=== PATIENT | female | born 1980 | race Hispanic/Latino ===

== ENCOUNTER 2018-12-20 10:08 | Emergency (ER) | payer BC ==
[2018-12-20 11:12] LABS: Absolute Lymphocytes (CBC) 1.9 K/uL (0.7-4.9); Absolute Monocytes 0.6 K/uL (0.1-1.3); Absolute Neutrophil 5.5 K/uL (1.8-8.0); Basophils % 0.5 % (0-1.3); Eosinophils % 0.3 % (0-4.4); Hematocrit 35.9 % (36.0-45.0); Lymphocytes % 23.8 % (15.3-44.8); MPV 8.4 fL (7.6-11.3); Monocytes % 7.7 % (3.3-12.3); RBC Red Blood Cell Count 3.84 M/uL (3.86-4.86)
[2018-12-20] MEDS ORDERED: NA CHLORIDE 0.9% 1,000 ML ONE (11:14)
[2018-12-20 11:18] LABS: Protime INR 1.11
[2018-12-20 11:32] LABS: ALT/SGPT 18 U/L (12-78); AST/SGOT 12 U/L (15-37); Albumin 3.8 g/dL (3.4-5.0); Alkaline Phosphatase 49 U/L (45-117); BUN Blood Urea Nitrogen 8 mg/dL (7-18); Bicarbonate 27 mmol/L (21-32); Bilirubin Direct 0.2 mg/dL (0-0.2); Bilirubin Total 0.6 mg/dL (0.2-1.0); Glucose Level 102 mg/dL (74-106); NT PRO-BNP 76 pg/mL (<125); Potassium 3.7 mmol/L (3.5-5.1); Protein, Total 7.1 g/dL (6.4-8.2); Sodium Level 140 mmol/L (136-145); Troponin (Emerg Dept Use Only) < 0.02 ng/mL (0.0-0.045)
--- NOTE | 2018-12-20 12:13 | RAD REPORT ---
EXAM DESCRIPTION: RAD - Chest Single View - 12/20/2018 12:00 pm CLINICAL HISTORY: Back pain, left-sided breast and chest pain COMPARISON: None. TECHNIQUE: AP portable chest image was obtained 1155 hours . FINDINGS: Lung volumes are low. No peripheral consolidation or mass. Significant failure or volume o verload are doubtful. Heart size is upper normal, accentuated by portable technique and shallow inspi ration. Vasculature not outside of normal range. No measurable pleural effusion and no pneumothorax. No acute bony abnormality seen. No acute aortic findings suspected. IMPRESSION: Exam is limited due to portable technique and shallow inspiration. No definitive evidence for pneumonia, failure or volume overload.
[2018-12-20] MEDS ORDERED: ASPIRIN 81 MG CHEWABLE TABLET ONE (12:31)
[2018-12-20 14:13] LABS: Urine Bacteria >50 /HPF (<20); Urine Culture Reflex Order REFLEXED; Urine Mucus 1+ /HPF (NONE SEEN); Urine RBC <5 /HPF (NONE SEEN)
[2018-12-20 14:16] LABS: Urine Blood NEGATIVE (NEG); Urine Glucose NEGATIVE (NEG); Urine Protein NEGATIVE (NEG)
--- NOTE | 2018-12-20 15:17 | EKG ---
Test Date: 2018-12-20 Test Time: 09:19:57 Supervisor Fur Dressing: MARILYN MEASUREMENT RESULTS: Intervals: Rate: 57 NC: 152 QRSD: 92 QT: 418 QTc: 406 [place]: P: 52 NC: 152 QRS: 55 T: 51 INTERPRETIVE STATEMENTS: Sinus bradycardia with sinus arrhythmia Otherwise normal ECG No previous ECG available for comparison Electronically Signed On 12-20-18 15:16:07 CDT by Chaparro Isbell
--- NOTE | 2018-12-20 15:31 | EDPHYS ---
Physician Documentation [facility] Name: Lubna Tran Age: 38 yrs Sex: Female : 1980 Arrival Date: 12/20/2018 Time: 10:09 Bed 24 Private MD: None, None ED Physician Tyler Peres HPI: 12/20 10:40 This 38 yrs old Female presents to ER via Ambulatory with complaints of Chest cp Pain, Arm Pain. 10:40 The patient or guardian reports chest pain that is located primarily in the anterior cp chest wall, left. 10:40 The pain does not radiate. cp 10:40 Associated signs and symptoms: Pertinent positives: tingling left arm and left leg. The cp chest pain is described as a pressure. Duration: The patient or guardian reports multiple episodes, that wax and wane, with no pattern. Severity of pain: in the emergency department the pain has improved markedly. Patient also reports dizziness. Historical: - Allergies: 10:13 No Known Allergies; ss - Home Meds: 10:13 None [Active]; ss - PMHx: 10:13 hypotension; ss - PSHx: 10:13 Hysterectomy; ss - Immunization history:: Adult Immunizations up to date. - Social history:: Smoking status: Patient/guardian denies using tobacco. - Ebola Screening: : Patient denies exposure to infectious person Patient denies travel to an Ebola-affected area in the 21 days before illness onset. ROS: 10:41 Constitutional: Negative for body aches, chills, fever, poor PO intake. cp 10:41 Eyes: Negative for injury, pain, redness, and discharge. cp 10:41 ENT: Negative for drainage from ear(s), ear pain, sore throat, difficulty swallowing, difficulty handling secretions. 10:41 Cardiovascular: Positive for chest pain, Negative for edema, palpitations. 10:41 Respiratory: Negative for cough, shortness of breath, wheezing. 10:41 Abdomen/GI: Negative for abdominal pain, nausea, vomiting, and diarrhea. 10:41 Back: Negative for pain at rest, pain with movement, radiated pain. 10:41 MS/extremity: Positive for tingling, of the left arm and left leg. 10:41 Skin: Negative for cellulitis, rash. 10:41 Neuro: Positive for dizziness, Negative for altered mental status, headache, weakness. 10:41 All other systems are negative. Exam: 10:41 ECG was reviewed by the Attending Physician. cp 10:45 Constitutional: The patient appears in no acute distress, alert, awake, comfortable, cp non-diaphoretic, non-toxic, well developed, well nourished. 10:45 Head/Face: Normocephalic, atraumatic. Eyes: Pupils equal round and reactive to light, cp extra-ocular motions intact. Lids and lashes normal. Conjunctiva and sclera are non-icteric and not injected. Cornea within normal limits. Periorbital areas with no swelling, redness, or edema. ENT: Nares patent. No nasal discharge, no septal abnormalities noted. Tympanic membranes are normal and external auditory canals are clear. Oropharynx with no redness, swelling, or masses, exudates, or evidence of obstruction, uvula midline. Mucous membranes moist. Neck: Trachea midline, no thyromegaly or masses palpated, and no cervical lymphadenopathy. Supple, full range of motion without nuchal rigidity, or vertebral point tenderness. No Meningismus. 10:45 Chest/axilla: Inspection: normal. 10:45 Cardiovascular: Rate: normal, Rhythm: regular, Pulses: Pulses are 2+ in right radial artery and left radial artery. Heart sounds: murmur, not appreciated, Edema: is not appreciated, JVD: is not appreciated. 10:45 Respiratory: the patient does not display signs of respiratory distress, Respirations: normal, no use of accessory muscles, no retractions, no splinting, no tachypnea, labored breathing, is not present, Breath sounds: are clear throughout, no decreased breath sounds, no stridor, no wheezing. 10:45 Abdomen/GI: Inspection: abdomen appears normal, Bowel sounds: active, all quadrants, Palpation: abdomen is soft and non-tender, in all quadrants, rebound tenderness, is not appreciated, voluntary guarding, is not appreciated, involuntary guarding, is not appreciated. 10:45 Back: pain, is absent, ROM is normal. 10:45 Skin: cellulitis, is not appreciated, no rash present. 10:45 Neuro: Orientation: to person, place \T\ time. Mentation: is normal, Cerebellar function: is grossly normal, Motor: is normal, Sensation: tingling, that is mild, of the left arm and left leg. 14:30 ECG was reviewed by the Attending Physician. Vital Signs: 10:13 BP 115 / 77; Pulse 57; Resp 15; Temp 97.5(TE); Pulse Ox 100% on R/A; Weight 90.72 kg; ss Height 5 ft. 5 in. (165.10 cm); Pain 8/10; 10:50 BP 104 / 72 Supine; Pulse 56; em 10:50 BP 117 / 80 Sitting; Pulse 63; em 11:50 BP 103 / 72; Pulse 60; Resp 18; Pulse Ox 100% on R/A; em 13:02 BP 108 / 69; Pulse 55; Resp 18; Pulse Ox 100% on R/A; Pain 3/10; em 14:00 BP 99 / 74; Pulse 58; Resp 18; Pulse Ox 99% on R/A; em 15:00 BP 106 / 62; Pulse 56; Resp 18; Pulse Ox 99% on R/A; Pain 3/10; em 10:13 Body Mass Index 33.28 (90.72 kg, 165.10 cm) ss MDM: 10:10 Patient medically screened. rn 15:29 Data reviewed: vital signs, nurses notes, lab test result(s), EKG, radiologic studies, cp plain films. 15:29 Differential diagnosis: abnormal EKG, acute myocardial infarction, chest wall pain, cp esophagitis, gastritis, myocarditis, peptic ulcer disease, pleurisy, pneumonia, pneumothorax, pulmonary embolus. Test interpretation: by ED physician or midlevel provider: ECG, plain radiologic studies. 12/20 10:36 Order name: Basic Metabolic Panel; Complete Time: 11:33 cp 12/20 11:33 Interpretation: Normal except: CRE 0.47; CA 8.4. cp 12/20 10:36 Order name: CBC with Diff; Complete Time: 11:33 cp 12/20 11:33 Interpretation: Normal except: RBC 3.84; HCT 35.9. cp 12/20 10:36 Order name: LFT's; Complete Time: 11:33 cp 12/20 10:36 Order name: Magnesium; Complete Time: 11:33 cp 12/20 10:36 Order name: NT PRO-BNP; Complete Time: 11:33 cp 12/20 10:36 Order name: PT-INR; Complete Time: 11:33 cp 12/20 10:36 Order name: Troponin (emerg Dept Use Only); Complete Time: 11:33 cp 12/20 10:36 Order name: XRAY Chest (1 view); Complete Time: 12:38 cp 12/20 12:38 Interpretation: Report review. cp 12/20 12:27 Order name: Urine Microscopic Only; Complete Time: 14:51 aa5 12/20 14:52 Interpretation: Normal except: UWBC 10-20; UBACT >50; SQEPI 10-20. cp 12/20 13:55 Order name: Troponin (emerg Dept Use Only); Complete Time: 15:28 em 12/20 14:09 Order name: Urine Dipstick--Ancillary (enter results); Complete Time: 14:51 bd 12/20 14:52 Interpretation: Normal except: UESTR 2+. cp 12/20 14:09 Order name: Urine --Ancillary (enter results); Complete Time: 14:51 bd 12/20 14:16 Order name: Urine Culture EDMS 12/20 10:17 Order name: EKG; Complete Time: 10:17 ss 12/20 10:17 Order name: EKG - Nurse/Tech; Complete Time: 10:46 ss 12/20 10:36 Order name: Orthostatics; Complete Time: 11:44 cp 12/20 10:36 Order name: Cardiac monitoring; Complete Time: 10:46 cp 12/20 10:36 Order name: IV Saline Lock; Complete Time: 10:46 cp 12/20 10:36 Order name: Labs collected and sent; Complete Time: 10:46 cp 12/20 10:36 Order name: O2 Per Protocol; Complete Time: 10:46 cp 12/20 10:36 Order name: O2 Sat Monitoring; Complete Time: 10:46 cp 12/20 10:36 Order name: Urine Dipstick-Ancillary (obtain specimen); Complete Time: 12:27 cp 12/20 10:36 Order name: Urine Test (obtain specimen); Complete Time: 12:27 cp EC:41 Rate is 57 beats/min. Rhythm is regular. TX interval is normal. QRS interval is normal. cp QT interval is normal. Interpreted by me. Reviewed by me. 14:30 Rate is 55 beats/min. Rhythm is regular. TX interval is normal. QRS interval is normal. cp QT interval is normal. Interpreted by me. Reviewed by me. Administered Medications: 11:06 Drug: NS 0.9% 1000 ml Route: IV; Rate: 1 bolus; Site: right antecubital; em 15:47 Follow up: IV Status: Completed infusion; IV Intake: 1000ml em 12:40 Drug: Aspirin Chewable Tablet 324 mg Route: PO; em 15:47 Follow up: Response: No adverse reaction em Disposition: 18:21 Co-signature as Attending Physician, Tyler Peres MD. rn Disposition: 12/20/18 15:30 Discharged to Home. Impression: Other chest pain, Dizziness and giddiness. - Condition is Stable. - Discharge Instructions: Nonspecific Chest Pain, Dizziness. - Prescriptions for Ibuprofen 800 mg Oral Tablet - take 1 tablet by ORAL route every 8 hours As needed take with food; 30 tablet. - Work release form, Medication Reconciliation Form, Thank You Letter, Antibiotic Education, Prescription Opioid Use form. - Follow up: Private Physician; When: 2 - 3 days; Reason: Recheck today's complaints. - Problem is new. - Symptoms have improved. Signatures: Dispatcher [employer] EDIL Gian Montgomery, TRANSMISSION SUPERINTENDENT TRANSMISSION SUPERINTENDENT Tyler Watson MD MD rn Smirch, Shelby, RN RN ss Page, Corey, PA PA cp Corrections: (The following items were deleted from the chart) 11:33 11:33 Normal except: CRE 0.47. cp cp 15:48 15:30 12/20/2018 15:30 Discharged to Home. Impression: Other chest pain; Dizziness and em giddiness. Condition is Stable. Forms are Medication Reconciliation Form, Thank You Letter, Antibiotic Education, Prescription Opioid Use. Follow up: Private Physician; When: 2 - 3 days; Reason: Recheck today's complaints. Problem is new. Symptoms have improved. cp
--- NOTE | 2018-12-20 15:31 | ER ---
Nurse's Notes [facility] Name: Lubna Tran Age: 38 yrs Sex: Female : 1980 Arrival Date: 12/20/2018 Time: 10:09 Bed 24 Private MD: None, None Diagnosis: Other chest pain;Dizziness and giddiness Presentation: 12/20 10:15 Presenting complaint: Patient states: back pain and pain under L breast x 3 days. Pain ss is now in chest that began today with tingling to L arm. Also c/o nausea. Transition of care: patient was not received from another setting of care. Onset of symptoms was December 17, 2018. Risk Assessment: Do you want to hurt yourself or someone else? Patient reports no desire to harm self or others. Initial Sepsis Screen: Does the patient meet any 2 criteria? No. Patient's initial sepsis screen is negative. Does the patient have a suspected source of infection? No. Patient's initial sepsis screen is negative. Care prior to arrival: None. 10:15 Method Of Arrival: Ambulatory ss 10:15 Acuity: FELIPE 3 ss Historical: - Allergies: 10:13 No Known Allergies; ss - Home Meds: 10:13 None [Active]; ss - PMHx: 10:13 hypotension; ss - PSHx: 10:13 Hysterectomy; ss - Immunization history:: Adult Immunizations up to date. - Social history:: Smoking status: Patient/guardian denies using tobacco. - Ebola Screening: : Patient denies exposure to infectious person Patient denies travel to an Ebola-affected area in the 21 days before illness onset. Screenin:25 Abuse screen: Denies threats or abuse. Nutritional screening: No deficits noted. em Tuberculosis screening: No symptoms or risk factors identified. Fall Risk None identified. Assessment: 10:35 General: Appears in no apparent distress. comfortable, Behavior is calm, cooperative, em Denies fever. Pain: Complains of pain in mid-sternal area Pain radiates to left arm and left leg Pain currently is 7 out of 10 on a pain scale. Pain began 1 hour ago. Is continuous. Neuro: Level of Consciousness is awake, alert, obeys commands, Oriented to person, place, time, situation, Tv News Director are equal bilaterally Speech is normal, Facial symmetry appears normal, Pupils are PERRLA, paresthesias in left arm Reports dizziness, headache Denies blurred vision difficulty swallowing. Cardiovascular: Reports chest pain, nausea, vomiting, Denies syncope, Capillary refill < 3 seconds Patient's skin is warm and dry. Rhythm is sinus arrythmia. Respiratory: Airway is patent Respiratory effort is even, unlabored, Respiratory pattern is regular, symmetrical, Breath sounds are clear bilaterally. GI: Abdomen is flat. EENT: Oral mucosa is moist. Throat is clear is pink. Derm: Skin is intact, is healthy with good turgor, Skin is pink, warm \T\ dry. Musculoskeletal: Range of motion: intact in all extremities. 10:35 Reassessment: I agree with assessment completed by Gian Montgomery LVN . aa5 10:50 Reassessment: became dizzy during orthostatics, assisted pt back into bed, pt unable to em provide UA at this time, provider notified, new medication orders received. 11:46 Reassessment: Patient appears in no apparent distress at this time. Patient and/or em family updated on plan of care and expected duration. Pain level reassessed. Patient is alert, oriented x 3, equal unlabored respirations, skin warm/dry/pink. reports dizziness. 12:25 Reassessment: Patient appears in no apparent distress at this time. Patient and/or em family updated on plan of care and expected duration. Pain level reassessed. Patient is alert, oriented x 3, equal unlabored respirations, skin warm/dry/pink. pt ambulated to restroom with steady gait, reports dizziness has diminished Patient states feeling better. Patient states symptoms have improved. 13:30 Reassessment: Patient appears in no apparent distress at this time. Patient and/or em family updated on plan of care and expected duration. Pain level reassessed. Patient is alert, oriented x 3, equal unlabored respirations, skin warm/dry/pink. resting comfortably with eyes closed, will repeat cardiac enzymes and EKG at 1400 Patient states feeling better. 15:26 Reassessment: Patient appears in no apparent distress at this time. Patient and/or em family updated on plan of care and expected duration. Pain level reassessed. Patient is alert, oriented x 3, equal unlabored respirations, skin warm/dry/pink. Vital Signs: 10:13 BP 115 / 77; Pulse 57; Resp 15; Temp 97.5(TE); Pulse Ox 100% on R/A; Weight 90.72 kg; ss Height 5 ft. 5 in. (165.10 cm); Pain 8/10; 10:50 BP 104 / 72 Supine; Pulse 56; em 10:50 BP 117 / 80 Sitting; Pulse 63; em 11:50 BP 103 / 72; Pulse 60; Resp 18; Pulse Ox 100% on R/A; em 13:02 BP 108 / 69; Pulse 55; Resp 18; Pulse Ox 100% on R/A; Pain 3/10; em 14:00 BP 99 / 74; Pulse 58; Resp 18; Pulse Ox 99% on R/A; em 15:00 BP 106 / 62; Pulse 56; Resp 18; Pulse Ox 99% on R/A; Pain 3/10; em 10:13 Body Mass Index 33.28 (90.72 kg, 165.10 cm) ED Course: 10:09 Patient arrived in ED. aa5 10:10 None, None is Private Physician. mr 10:10 Tyler Peres MD is Attending Physician. rn 10:13 Arm band placed on right wrist. ss 10:17 Triage completed. ss 10:20 Gian Montgomery LVN is Primary Nurse. em 10:24 Dileep Del Toro PA is PHCP. cp 10:24 Tyler Peres MD is Attending Physician. cp 10:25 Patient has correct armband on for positive identification. Placed in gown. Bed in low em position. Call light in reach. Side rails up X2. Adult w/ patient. desk monitor on. Pulse ox on. NIBP on. 10:25 Patient maintains SpO2 saturation greater than 95% on room air. em 10:30 EKG done, by technical business analyst. reviewed by Tyler Peres MD. at1 11:00 Initial lab(s) drawn, by oh, sent to lab. Inserted saline lock: 20 gauge in right em antecubital area, using aseptic technique. Blood collected. 11:59 X-ray completed. Portable x-ray completed in exam room. Patient tolerated procedure mh1 well. 12:00 XRAY Chest (1 view) In Process Unspecified. EDMS 12:20 Urine collected: clean catch specimen, cloudy, stacy colored, Amount Voided: 100mL. jp3 12:36 Urine Microscopic Only Sent. jp3 14:53 EKG done, by technical business analyst. dt2 15:46 No provider procedures requiring assistance completed. IV discontinued, intact, em bleeding controlled, No redness/swelling at site. Pressure dressing applied. Administered Medications: 11:06 Drug: NS 0.9% 1000 ml Route: IV; Rate: 1 bolus; Site: right antecubital; em 15:47 Follow up: IV Status: Completed infusion; IV Intake: 1000ml em 12:40 Drug: Aspirin Chewable Tablet 324 mg Route: PO; em 15:47 Follow up: Response: No adverse reaction em Intake: 15:47 IV: 1000ml; Total: 1000ml. em Outcome: 15:30 Discharge ordered by MD. cp 15:46 Discharged to home ambulatory, with family. em 15:46 Condition: good 15:46 Discharge instructions given to patient, family, Instructed on discharge instructions, follow up and referral plans. medication usage, Demonstrated understanding of instructions, follow-up care, medications, Prescriptions given X 1. 15:48 Patient left the ED. em Signatures: Dispatcher [employer] [facility] Irwin Angela StrattonVicky mh1 Gian Montgomery, AVIATION MEDICINE SPECIALIST AVIATION MEDICINE SPECIALIST em Tyler Peres MD MD rn Calderon, Astrid, RN RN [email or web address] Macie Kingston, Jade Lafleur RN, certified real estate appraiser EKG Tat1 Dileep Del Toro PA PA cp Teague, Danielle dt2 Cyrus Brice jp3
--- NOTE | 2018-12-23 10:24 | EKG ---
Test Date: 2018-12-20 Test Time: 14:21:18 Electric[employer]: RENU MEASUREMENT RESULTS: Intervals: Rate: 55 OH: 168 QRSD: 92 QT: 444 QTc: 424 [place]: P: 46 OH: 168 QRS: 63 T: 57 INTERPRETIVE STATEMENTS: Sinus bradycardia Otherwise normal ECG Compared to ECG 12/20/2018 09:19:57 Sinus arrhythmia no longer present Electronically Signed On 12-20-18 16:20:27 CDT by Chaparro Isbell
== END 2018-12-20 15:48 | disposition home or self-care (01) ==
LOC: ER 10:08
DX: R07.89 Other chest pain (principal); R42 Dizziness and giddiness; R20.2 Paresthesia of skin; I95.9 Hypotension, unspecified
CPT/HCPCS: 36415; 71045; 80048; 80076; 81003; 81015; 81025; 83735; 83880; 84484; 85025; 85610; 87086; 87088; 93005; 96360; 96361; 99285; J7030

== ENCOUNTER 2019-02-24 07:59 | Emergency (ER) | payer BC ==
[2019-02-24 08:26] LABS: Absolute Lymphocytes (CBC) 1.6 K/uL (0.7-4.9); Absolute Monocytes 0.5 K/uL (0.1-1.3); Absolute Neutrophil 4.4 K/uL (1.8-8.0); Basophils % 0.7 % (0-1.3); Eosinophils % 0.5 % (0-4.4); Hematocrit 37.6 % (36.0-45.0); Lymphocytes % 24.8 % (15.3-44.8); MPV 8.9 fL (7.6-11.3); Monocytes % 7.1 % (3.3-12.3); RBC Red Blood Cell Count 3.98 M/uL (3.86-4.86)
[2019-02-24] MEDS ORDERED: NA CHLORIDE 0.9% 1,000 ML ONE (08:27)
[2019-02-24] MEDS ORDERED: ONDANSETRON 4 MG/2 ML VIAL ONE (08:27)
[2019-02-24] MEDS ORDERED: KETOROLAC 30 MG/ML INJ ONE (08:27)
[2019-02-24 08:37] LABS: BUN Blood Urea Nitrogen 9 mg/dL (7-18); Bicarbonate 25 mmol/L (21-32); Glucose Level 117 mg/dL (74-106); Sodium Level 143 mmol/L (136-145)
[2019-02-24] MEDS ORDERED: HYDROMORPHONE HCL 0.5 MG/0.5 ML INJ ONE ×2 (08:46→10:11)
--- NOTE | 2019-02-24 09:11 | RAD REPORT ---
EXAM DESCRIPTION: CT - Stone Protocol - 02/24/2019 8:41 am CLINICAL HISTORY: Abdominal pain. Lower abdominal pain. Urinary frequency COMPARISON: None. TECHNIQUE: Computed axial tomography of the abdomen pelvis was obtained without oral or IV contrast. Lack of IV and oral contrast limits evaluation of solid organs, bowel, and vessels. Coronal reformat liliya images were obtained and reviewed. All CT scans are performed using dose optimization technique as appropriate and may include automated exposure control or mA/KV adjustment according to patient size. FINDINGS: A renal calculus is not seen. An ureteral calculus is not noted. A bladder calculus is not present. The liver, spleen, pancreas and adrenals appear grossly normal There is no evidence of diverticulitis. The appendix appears normal A 6 centimeter mass is present within the left adnexa containing fat and calcification consistent wit h a dermoid. Abutting this mass to the right of midline is a 4.5 centimeter cystic mass. No significant free fluid Small umbilical hernia. Cholecystectomy. Hysterectomy IMPRESSION: Negative for a genitourinary calculus 6 centimeter dermoid within the left pelvis. Additional 4.5 centimeter mass which abuts the dermoid t o the right of midline could either represent extension of the dermoid or a second mass such as an ov magdi cyst.
[2019-02-24 10:28] LABS: Urine Amorphous Sediment 1+ /HPF (NONE SEEN); Urine Culture Reflex Order NOT NEEDED; Urine Mucus HEAVY /HPF (NONE SEEN); Urine RBC <5 /HPF (NONE SEEN)
[2019-02-24 10:29] LABS: Urine Blood TRACE (NEG); Urine Glucose NEGATIVE (NEG); Urine Protein NEGATIVE (NEG); Urine Specific Gravity 1.025 (1.005-1.030); Urine pH 5.5 (5.0-7.0)
[2019-02-24 10:29] LABS: Urine Bacteria 20-50 /HPF (<20)
--- NOTE | 2019-02-24 10:54 | RAD REPORT ---
EXAM DESCRIPTION: US - Transvaginal Study Probe - 02/24/2019 10:43 am CLINICAL HISTORY: rule out torsion Pelvic pain. COMPARISON: Stone Protocol dated 02/24/2019 FINDINGS: The uterus is not visualized. The right ovary measures 4.3 x 4.3 x 4.0 cm. 3.5 cm right ovarian cyst/follicle. The left ovary measu res 3.1 x 2.5 x 2.1 cm. A left ovarian echogenic and shadowing dermoid is present. Normal Doppler blood flow was demonstrated to both ovaries. No significant pelvic ascites. IMPRESSION: No evidence of ovarian torsion.
--- NOTE | 2019-02-24 11:22 | ER ---
Nurse's Notes [facility] Name: Lubna Tran Age: 38 yrs Sex: Female : 1980 Arrival Date: 02/24/2019 Time: 08:01 Bed 6 Private MD: None, None Diagnosis: Lower abdominal pain, unspecified Presentation: 02/24 08:05 Onset of symptoms was February 24, 2019. Risk Assessment: Do you want to hurt yourself or aa5 someone else? Patient reports no desire to harm self or others. Care prior to arrival: None. 08:05 Presenting complaint: Patient states: right flank pain radiating to RLQ that began this aa5 morning. Pt also c/o nausea. Transition of care: patient was not received from another setting of care. 08:05 Method Of Arrival: Wheelchair aa5 08:05 Acuity: FELIPE 2 aa5 08:26 Initial Sepsis Screen: Does the patient meet any 2 criteria? No. Patient's initial aa5 sepsis screen is negative. Does the patient have a suspected source of infection? No. Patient's initial sepsis screen is negative. 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 - Ebola Screening: : No symptoms or risks identified at this time. Screenin:25 Abuse screen: Denies threats or abuse. Nutritional screening: No deficits noted. aa5 Tuberculosis screening: No symptoms or risk factors identified. Fall Risk IV access (20 points). Total Jc Fall Scale indicates No Risk (0-24 pts). Assessment: 08:07 General: Appears uncomfortable, Behavior is cooperative. Pain: Complains of pain in aa5 right flank Pain radiates to right lower quadrant Pain currently is 10 out of 10 on a pain scale. Quality of pain is described as sharp, shooting, Is continuous, Aggravated by increased activity, repositioning, Noted to be guarding, moaning, resistant to movement. Neuro: Level of Consciousness is awake, alert, obeys commands, Oriented to person, place, time, situation. Cardiovascular: Heart tones S1 S2 present Rhythm is regular. Respiratory: Airway is patent Respiratory effort is even, unlabored, Respiratory pattern is regular, symmetrical. GI: Abdomen is round non-distended, Bowel sounds present X 4 quads. Abd is soft and non tender X 4 quads. Reports nausea, Patient currently denies vomiting. : No signs and/or symptoms were reported regarding the genitourinary system. EENT: No signs and/or symptoms were reported regarding the EENT system. Derm: Skin is pink, warm \T\ dry. Musculoskeletal: Range of motion: intact in all extremities. 08:25 Reassessment: Patient is alert, oriented x 3, equal unlabored respirations, skin aa5 warm/dry/pink. Patient states symptoms have not improved. Pt sitting up in bed, resistant to movement, pt moaning. MD was notified of unchanged pain level. . 08:37 Reassessment: Pt taken to CT . aa5 08:47 Reassessment: Pt resting in bed with eyes closed, respirations even and unlabored, skin aa5 is pink/warm/dry. Pt easy to awaken to verbal stimuli. Pt states feeling better, rates pain 5/10 on a pain scale. Awaiting CT results, pt notified of wait time. . 09:35 Reassessment: Pt resting in bed with eyes closed, equal and unlabored respirations, aa5 skin is pink/warm/dry . 10:00 Reassessment: Pt assisted to restroom and urine specimen collected. Pt placed back in aa5 bed, pt appears uncomfortable, MD notified. . 10:04 Reassessment: Patient is alert, oriented x 3, equal unlabored respirations, skin aa5 warm/dry/pink. Pain: Pain currently is 10 out of 10 on a pain scale. GI: Abdomen is tender to palpation in right lower quadrant. 11:00 Reassessment: Patient is alert, oriented x 3, equal unlabored respirations, skin aa5 warm/dry/pink. 11:00 Pain: Pain currently is 5 out of 10 on a pain scale. aa5 11:50 Reassessment: Patient is alert, oriented x 3, equal unlabored respirations, skin aa5 warm/dry/pink. 11:50 Pain: Pain currently is 6 out of 10 on a pain scale. aa5 Vital Signs: 08:19 BP 116 / 95; Pulse 68; Resp 18 S; Temp 97.8(O); Pulse Ox 100% on R/A; Pain 10/10; aa5 08:36 Pulse 58; Resp 16 S; Pulse Ox 100% on R/A; aa5 08:47 BP 128 / 84; Pulse 52; Resp 14 S; Pulse Ox 96% on R/A; Pain 5/10; aa5 09:03 BP 117 / 83; Pulse 54; Resp 14 S; Pulse Ox 96% on R/A; hj 10:03 BP 121 / 89; Pulse 58; Resp 16 S; Pulse Ox 100% on R/A; Pain 10/10; aa5 11:00 BP 118 / 79; Pulse 54; Resp 16 S; Temp 97.8(TE); Pulse Ox 97% on R/A; Pain 5/10; aa5 ED Course: 08:01 Patient arrived in ED. mr 08:01 None, None is Private Physician. mr 08:04 Jj Park MD is Attending Physician. gs 08:05 Arm band placed on Patient placed in an exam room, on a stretcher. aa5 08:05 Patient has correct armband on for positive identification. Placed in gown. Bed in low aa5 position. Call light in reach. Side rails up X2. Adult w/ patient. 08:12 Astrid Fung, RN is Primary Nurse. aa5 08:13 Initial lab(s) drawn, by ED staff, sent to lab. Inserted saline lock: 22 gauge in right aa5 antecubital area, using aseptic technique. IV inserted by Dakota Preston [facility]. 08:15 Radiology exam delayed due to test not completed at this time. sj 08:22 Triage completed. aa5 08:40 No provider procedures requiring assistance completed. aa5 08:41 CT completed. Patient tolerated procedure well. Patient moved to CT via stretcher. Patient moved back from CT. 08:42 CT Stone Protocol In Process Unspecified. EDMS 10:43 Transvaginal Study Probe In Process Unspecified. EDMS 11:22 Froy Rice MD is Referral Physician. gs 11:50 IV discontinued, intact, bleeding controlled, No redness/swelling at site. Pressure aa5 dressing applied. Administered Medications: 08:15 Drug: NS 0.9% 1000 ml Route: IV; Rate: 1 bolus; Site: right antecubital; aa5 08:15 Drug: Zofran 4 mg Route: IVP; Site: right antecubital; aa5 08:25 Follow up: Response: No adverse reaction; Nausea is decreased aa5 08:17 Drug: TORadol - Ketorolac 15 mg Route: IVP; Site: right antecubital; aa5 08:25 Follow up: Response: No adverse reaction; Pain is unchanged, physician notified aa5 08:35 Drug: Dilaudid 0.5 mg Route: IVP; Site: right antecubital; aa5 08:36 Follow up: Response: No adverse reaction; Marked relief of symptoms; Pain is decreased aa5 10:05 Drug: Dilaudid 0.5 mg Route: IVP; Site: right antecubital; aa5 10:10 Follow up: Response: No adverse reaction; Pain is decreased aa5 Outcome: 11:22 Discharge ordered by MD. 11:50 Discharged to home via wheelchair, with significant other. aa5 11:50 Condition: stable 11:50 Discharge instructions given to patient, significant other, Instructed on discharge instructions, follow up and referral plans. medication usage, Demonstrated understanding of instructions, follow-up care, medications, Prescriptions given X 2. 11:59 Patient left the ED. aa5 Signatures: Dispatcher [facility] Irwin Pat Juarez Astrid Zavala RN RN aa Mg Owens RN RN hj Starr, Gregory, MD MD Corrections: (The following items were deleted from the chart) 08:24 08:05 Acuity: FELIPE 3 aa5 aa5 08:27 08:07 PMHx: None; aa5 aa5 09:04 08:47 BP 128 / 84; Pulse 52bpm; Resp 14bpm; Spontaneous; Pulse Ox 96% RA; Pain 5/10; hj aa5 09:04 08:47 Reassessment: Pt resting in bed with eyes closed, respirations even and aa5 unlabored, skin is pink/warm/dry. Pt easy to awaken to verbal stimuli. Pt states feeling better, rates pain 5/10 on a pain scale. Awaiting CT results, pt notified of wait time. . 10:06 10:00 Reassessment: Pt assisted to restroom and urine specimen collected. Pt placed aa5 back in bed, pt appears uncomfortable. . aa5
--- NOTE | 2019-02-24 11:23 | EDPHYS ---
Physician Documentation [facility] Name: Lubna Tran Age: 38 yrs Sex: Female : 1980 Arrival Date: 02/24/2019 Time: 08:01 Bed 6 Private MD: None, None ED Physician Jj Park HPI: 02/24 16:48 This 38 yrs old Female presents to ER via Wheelchair with complaints of Back gs Pain. 16:48 The patient complains of pain in the right low back. The pain radiates to the right gs lower quadrant and abdomen. Onset: The symptoms/episode began/occurred yesterday. Modifying factors: The symptoms are alleviated by nothing. the symptoms are aggravated by movement. Associated signs and symptoms: Pertinent negatives: dysuria, urinary frequency, pain radiating to the lower extremities. Severity of pain: At its worst the pain was severe in the emergency department the pain is unchanged. The patient has experienced similar episodes in the past, a few times. The patient has not recently seen a physician. 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 - Ebola Screening: : No symptoms or risks identified at this time. ROS: 16:48 All other systems are negative. gs Exam: 16:48 Head/Face: Normocephalic, atraumatic. Eyes: Pupils equal round and reactive to light, gs extra-ocular motions intact. Lids and lashes normal. Conjunctiva and sclera are non-icteric and not injected. Cornea within normal limits. Periorbital areas with no swelling, redness, or edema. ENT: Nares patent. No nasal discharge, no septal abnormalities noted. Tympanic membranes are normal and external auditory canals are clear. Oropharynx with no redness, swelling, or masses, exudates, or evidence of obstruction, uvula midline. Mucous membranes moist. Neck: Trachea midline, no thyromegaly or masses palpated, and no cervical lymphadenopathy. Supple, full range of motion without nuchal rigidity, or vertebral point tenderness. No Meningismus. Chest/axilla: Normal chest wall appearance and motion. Nontender with no deformity. No lesions are appreciated. Cardiovascular: Regular rate and rhythm with a normal S1 and S2. No gallops, murmurs, or rubs. Normal PMI, no JVD. No pulse deficits. Respiratory: Lungs have equal breath sounds bilaterally, clear to auscultation and percussion. No rales, rhonchi or wheezes noted. No increased work of breathing, no retractions or nasal flaring. Skin: Warm, dry with normal turgor. Normal color with no rashes, no lesions, and no evidence of cellulitis. MS/ Extremity: Pulses equal, no cyanosis. Neurovascular intact. Full, normal range of motion. Neuro: Awake and alert, GCS 15, oriented to person, place, time, and situation. Cranial nerves II-XII grossly intact. Motor strength 5/5 in all extremities. Sensory grossly intact. Cerebellar exam normal. Normal gait. 16:48 Constitutional: The patient appears alert, awake, uncomfortable. 16:48 Abdomen/GI: Palpation: moderate abdominal tenderness, in the suprapubic area, right lower quadrant and left lower quadrant, rebound tenderness, is not appreciated. 16:48 Back: CVA tenderness, that is moderate, is noted on the right. Vital Signs: 08:19 BP 116 / 95; Pulse 68; Resp 18 S; Temp 97.8(O); Pulse Ox 100% on R/A; Pain 10/10; aa5 08:36 Pulse 58; Resp 16 S; Pulse Ox 100% on R/A; aa5 08:47 BP 128 / 84; Pulse 52; Resp 14 S; Pulse Ox 96% on R/A; Pain 5/10; aa5 09:03 BP 117 / 83; Pulse 54; Resp 14 S; Pulse Ox 96% on R/A; hj 10:03 BP 121 / 89; Pulse 58; Resp 16 S; Pulse Ox 100% on R/A; Pain 10/10; aa5 11:00 BP 118 / 79; Pulse 54; Resp 16 S; Temp 97.8(TE); Pulse Ox 97% on R/A; Pain 5/10; aa5 MDM: 08:10 Patient medically screened. 16:48 Differential diagnosis: UTI, pancreatitis, appy. Data reviewed: vital signs, nurses gs notes, lab test result(s), radiologic studies. Counseling: I had a detailed discussion with the patient and/or guardian regarding: the historical points, exam findings, and any diagnostic results supporting the discharge/admit diagnosis, lab results, radiology results, the need for outpatient follow up. Response to treatment: the patient's symptoms have markedly improved after treatment, and as a result, I will discharge patient. 02/24 08:10 Order name: CBC with Diff; Complete Time: 09:38 02/24 08:10 Order name: Basic Metabolic Panel; Complete Time: 09:38 02/24 08:10 Order name: Urine Microscopic Only; Complete Time: 10:56 02/24 08:10 Order name: CT Stone Protocol; Complete Time: : 02/24 10:13 Order name: Urine Dipstick--Ancillary (enter results); Complete Time: 10:56 02/24 10:13 Order name: Urine --Ancillary (enter results); Complete Time: 10:56 02/24 08:10 Order name: Urine Dipstick-Ancillary (obtain specimen); Complete Time: 10:06 02/24 10:43 Order name: Transvaginal Study Probe; Complete Time: 10:56 EDMS Administered Medications: 08:15 Drug: NS 0.9% 1000 ml Route: IV; Rate: 1 bolus; Site: right antecubital; aa5 08:15 Drug: Zofran 4 mg Route: IVP; Site: right antecubital; aa5 08:25 Follow up: Response: No adverse reaction; Nausea is decreased aa5 08:17 Drug: TORadol - Ketorolac 15 mg Route: IVP; Site: right antecubital; aa5 08:25 Follow up: Response: No adverse reaction; Pain is unchanged, physician notified aa5 08:35 Drug: Dilaudid 0.5 mg Route: IVP; Site: right antecubital; aa5 08:36 Follow up: Response: No adverse reaction; Marked relief of symptoms; Pain is decreased aa5 10:05 Drug: Dilaudid 0.5 mg Route: IVP; Site: right antecubital; aa5 10:10 Follow up: Response: No adverse reaction; Pain is decreased aa5 Disposition: 05/16/19 11:22 Discharged to Home. Impression: Lower abdominal pain, unspecified. - Condition is Stable. - Discharge Instructions: Abdominal Pain, Adult. - Prescriptions for Naprosyn 500 mg Oral Tablet - take 1 tablet by ORAL route 2 times per day As needed take with food; 20 tablet. Tylenol- Codeine #4 300-60 mg Oral Tablet - take 1 tablet by ORAL route every 6 hours As needed; 10 tablet. - Medication Reconciliation Form, Thank You Letter, Antibiotic Education, Prescription Opioid Use form. - Follow up: Private Physician; When: 2 - 3 days; Reason: Re-evaluation by your physician. Follow up: Froy Rice MD; When: 2 - 3 days; Reason: Re-evaluation by your physician. Signatures: Dispatcher [employer] [facility] Astrid Fung RN RN aa5 Jj Park MD MD Corrections: (The following items were deleted from the chart) 08:27 08:07 PMHx: None; aa5 aa5 10:43 09:40 Pelvis Complete+US.RAD.BRZ ordered. [facility] 11:59 11:22 02/24/2019 11:22 Discharged to Home. Impression: Lower abdominal pain, aa5 unspecified. Condition is Stable. Forms are Medication Reconciliation Form, Thank You Letter, Antibiotic Education, Prescription Opioid Use. Follow up: Private Physician; When: 2 - 3 days; Reason: Re-evaluation by your physician. Follow up: Froy Rice; When: 2 - 3 days; Reason: Re-evaluation by your physician. gs
== END 2019-02-24 11:59 | disposition home or self-care (01) ==
LOC: ER 07:59
DX: R10.30 Lower abdominal pain, unspecified (principal)
CPT/HCPCS: 36415; 74176; 76377; 76830; 80048; 81003; 81015; 81025; 85025; 96374; 96375; 99284; J1170; J2405; J7030